=== PATIENT | male | born 1990 | race African-American/Black ===

== ENCOUNTER 2016-06-13 03:58 | Emergency (ER) | payer OTHER ==
[~2016-06-13] VITALS: Ht 182.9 cm; Wt 81.7 kg
[2016-06-13 04:00] VITALS: BP 122/79
[2016-06-13] MEDS ORDERED: IBUPROFEN 800800 MG PO (04:05)
[2016-06-13] MEDS ORDERED: CYCLOBENZAPRINE5 MG PO (04:10)
== END 2016-06-13 04:25 | disposition home or self-care (01) ==
LOC: ER 03:58
DX: G89.29 Other chronic pain (principal)

== ENCOUNTER 2016-12-25 09:02 | Emergency (ER) | payer OTHER ==
[~2016-12-25] VITALS: Ht 185.4 cm; Wt 72.6 kg
[~2016-12-25 09:02] MED LIST: CYCLOBENZAPRINE5 MG PO; IBUPROFEN 800800 MG PO
[2016-12-25] MEDS ORDERED: TRAZODONE HCL50 MG PO ×2 (09:06→09:23)
[2016-12-25] MEDS ORDERED: DEPAKOTE 250MG250 M1 PO ×2 (09:06→09:23)
[2016-12-25] MEDS ORDERED: TESSALON PERLE100 MG PO (09:23)
== END 2016-12-25 09:34 | disposition home or self-care (01) ==
LOC: ER 09:02
DX: Z76.0 Encounter for issue of repeat prescription (principal); F41.9 Anxiety disorder, unspecified; F31.9 Bipolar disorder, unspecified; F20.9 Schizophrenia, unspecified